=== PATIENT | female | born 1960 | race African-American/Black ===

== ENCOUNTER 2018-11-10 12:48 | Emergency (ER) | payer OTHER ==
[2018-11-10 13:11] VITALS: BMI 37.8
--- NOTE | 2018-11-10 14:06 | PDOC ---
History of Present Illness - General Chief Complaint: Psychiatric Stated Complaint: ANXIETY Time Seen by Provider: 11/10/18 13:42 - History of Present Illness Initial Comments: 11/10/18 14:06 58 yo F with h/o HTN, HLD, who p/w lightheadedness. Patient with acute onset of unremitting "head grogginess," beginning yesterday morning at rest. No identifiable triggers or alleviators. Denies h/o similar presentation. Also endorses vision change, but unable to characterize, possible diplopia. Denies fall/head trauma/neck trauma/LOC. Patient reports difficulty sleeping d/t symptoms. Prompted by PMD to come to ED for further evaluation. Patient denies Neck pain, cough, wheezing, palpations, orthopnea, PND, leg pain/ swelling, N/V, F,C, CP, SOB, urinary complaints, abdominal pain, diarrhea, constipation, hematuria, BPR, weakness, sensory changes. PMHx: as noted above. Denies h/o ACS/ME, CVA/TIA. ROS: as noted SHx: Denies Etoh, tobacco, IVDA Allergies: NKDA tPA Exclusion checklist 3-4.5h - Time Elapsed Date last known well: 11/09/18 Time last known well: 08:00 Elaspsed time: 1 Day(s) and 10 Hour(s) and 35 Minutes - Thrombolytic Therapy Candidate Is patient eligible for thrombolytic therapy: No - Exclusion Criteria 3-4.5 hr SBP greater than 185 or DBP greater than 110mmHg despite tx: No Recent IC/spinal surgery,head trauma or stroke<3mos.: No Hx IC hemorrhage, IC neoplasm, AV malformation or aneurysm: No Active internal bleeding: No Blding diathesis(low plt ct, inc PTT,INR>1.7 or use of NOAC): No Symptoms suggest subarachnoid hemorrhage: No CT demonstrates multilobar infarct(>1/3 cerebral hemiphere): No Arterial puncture at noncompressible site in previous 7 days: No Blood glucose concentration less than 50mg/dL (2.7mmol/L): No - Relative Exclusion Criteria 3-4.5 hr Life expectancy <1 yr or severe co-morbid illness: No : No Patient/family refused: No Rapid improvement: No Stroke severity too mild: Yes Recent acute ME (w/in previous 3 months): No Seizure at onset with postictal residual neuro impairments: No Major surgery or serious trauma w/in previous 14 days: No Recent GI or hemorrhage (w/in previous 21 days): No - Add'l Relative Exclusion 3-4.5 hr Age > 80: No Hx of both diabetes AND prior ischemic stroke: No Taking an oral anticoagulant regardless of INR: No NIHSS >25: No - Ineligibility reason(s) Reasons No tPA given: Outside of window - delayed arrival, See reason(s) noted above NIH Stroke Scale - Last Known Well Date/Time & Onset Date Last Known Well: 11/09/18 Time Last Known Well: 08:00 - Initial Evaluation Level of consciousness: Alert Ask patient the month and their age: Answers both correctly Ask patient to open & close eyes; make fist and let go: Obeys both correctly Best gaze (horizontal eye movement): Normal Visual field testing: No visual field loss Facial paresis (Show teeth/raise eyebrows/close eyes tight): Normal symmetrical movement Motor Function: Left Arm: Normal Motor Function: Right Arm: Normal (extends arm 90 (or 45) degrees for 10 seconds without drift Motor Function: Left Leg: Normal (extends leg 30 degrees for 5 seconds without drift) Motor Function: Right Leg: Normal (extends leg 30 degrees for 5 seconds without drift) Limb Ataxia: No ataxia Sensory(Use pinprick test arms,legs,trunk,face/side to side): Normal Best language (Describe picture, name items, read sentences): No Aphasia Dysarthria (read several words): Normal articulation Extinction and Inattention: No abnormality - Total Score NIH Stroke Scale Score: 0 Past History - Past Medical History Allergies/Adverse Reactions: Allergies Allergy/AdvReac Type Severity Reaction Status Date / Time No Known Allergies Allergy Verified 11/10/18 13:10 Home Medications: Ambulatory Orders Aspirin [ASA] 81 mg PO DAILY 11/16/12 Meloxicam [Mobic] 15 mg PO DAILY 11/16/12 Simvastatin [Zocor] 80 mg PO AM 11/16/12 Triamterene/Hydrochlorothiazid [Triamterene-Hctz 37.5-25 mg Cp] 1 tab PO DAILY 11/10/18 COPD: No HTN: Yes Hypercholesterolemia: Yes - Suicide/Smoking/Psychosocial Hx Smoking Status: No Smoking History: Never smoked Number of Cigarettes Smoked Daily: 0 Hx Alcohol Use: Yes (on occasion does consume alcohol last drink was about one to 2 weeks ago.) Review of Systems - Review of Systems Comments:: 11/10/18 14:06 GENERAL/CONSTITUTIONAL: No fever or chills. No weakness. HEAD, EYES, EARS, NOSE AND THROAT: No change in vision. No ear pain or discharge. No sore throat. CARDIOVASCULAR: No chest pain or shortness of breath RESPIRATORY: No cough, wheezing, or hemoptysis. GASTROINTESTINAL: No nausea, vomiting, diarrhea or constipation. GENITOURINARY: No dysuria, frequency, or change in urination. MUSCULOSKELETAL: No joint or muscle swelling or pain. No neck or back pain. SKIN: No rash NEUROLOGIC: + Lightheadedness. No headache, vertigo, loss of consciousness, or change in strength/sensation. ENDOCRINE: No increased thirst. No abnormal weight change HEMATOLOGIC/LYMPHATIC: No anemia, easy bleeding, or history of blood clots. ALLERGIC/IMMUNOLOGIC: No hives or skin allergy. *Physical Exam - Vital Signs Last Vital Signs Temp Pulse Resp BP Pulse Ox 98 F 89 18 154/58 L 99 11/10/18 13:09 11/10/18 13:09 11/10/18 13:09 11/10/18 13:09 11/10/18 13:09 - Physical Exam Comments: 11/10/18 14:06 GENERAL: Awake, alert, and fully oriented, in no acute distress HEAD: No signs of trauma, normocephalic, atraumatic EYES: Vision 20/70 OU, PERRLA, EOMI, sclera anicteric, conjunctiva clear ENT: Auricles normal inspection, hearing grossly normal, nares patent, oropharynx clear without exudates. Moist mucosa NECK: Normal ROM, supple, no lymphadenopathy, JVD, or masses LUNGS: No distress, speaks full sentences, clear to auscultation bilaterally HEART: Regular rate and rhythm, normal S1 and S2, no murmurs, rubs or gallops, peripheral pulses normal and equal bilaterally. ABDOMEN: Soft, nontender, normoactive bowel sounds. No guarding, no rebound. No masses EXTREMITIES : Normal inspection, Normal range of motion, no edema. No clubbing or cyanosis. NEUROLOGICAL: Cranial nerves II through XII grossly intact. Normal speech, normal gait, no focal sensorimotor deficits. Neg dysmetria on FTN. Normal DIONNA. SKIN: Warm, Dry, normal turgor, no rashes or lesions noted Moderate Sedation - Procedure Monitoring Vital Signs: Procedure Monitoring Vital Signs Temperature 98 F 11/10/18 13:09 Pulse Rate 89 11/10/18 13:09 Respiratory Rate 18 11/10/18 13:09 Blood Pressure 154/58 L 11/10/18 13:09 O2 Sat by Pulse Oximetry (%) 99 11/10/18 13:09 ED Treatment Course - LABORATORY CBC & Chemistry Diagram: 11/10/18 15:25 11/10/18 15:25 Medical Decision Making - Medical Decision Making 11/10/18 15:10 58 yo F with h/o HTN, HLD, who p/w lightheadedness "head grogginess," x 2 days. Vitals wnl, AF, A&OX3. No focal neuro deficits on physical exam. Will evaluate for VBI/TIA, hypoglycemia, hypovolemia, cardiac dysarrythmias, electrolyte abnml , acid base disturbances, metabolic and toxic derangements, infection. NIHSS 0, Ta ED Course: CBC,CMP,CARDIAC,EKG CTH UA 11/10/18 15:17 11/10/18 16:56 CBC, CMP: Unremarkable UA: Neg EKst degree AV block, [place] 216, with absent MARGO, STD TWI. Normal axis. + LVH. NEg Q wave. 11/10/18 17:50 Trop: Neg 11/10/18 18:35 CTH: Unremarkable Stable for d/c with return precautions Advised to f/u with PMD and neurology *DC/Admit/Observation/Transfer Diagnosis at time of Disposition: Light-headed - Discharge Dispostion Condition at time of disposition: Stable Decision to Admit order: No - Referrals Referrals: Reji Jeffers [Primary Care Provider] - - Patient Instructions Printed Discharge Instructions: DI for Syncope in Adults (Fainting) Additional Instructions: Please return to the emergency department with any new or worsening symptoms or concerns. Please follow up with your primary care physician within 72 hours. - Post Discharge Activity - Attestations Physician Attestion: 11/10/18 14:06 I attest to the information provided in this note.
--- NOTE | 2018-11-10 15:59 | PDOC ---
Attending Attestation - HPI HPI: 11/10/18 16:57 The patient is a 58 year old female, with a significant past medical history of HTN and HLD, who presents to the emergency department with, lightheadedness. She received a cortisone shot yesterday to her knee and today her symptoms onset. Patient describes her symptoms as grogginess with associated increased anxiety and visionary changes she is unable to describe. She denies any recent weakness, numbness, head/neck injury, or neck pain. She denies recent fevers or chills.. She denies recent nausea, vomit, diarrhea or constipation. She denies recent dysuria, frequency, urgency or hematuria. She denies recent chest pain or shortness of breath. Allergies: NKDA Past surgical history: None reported. Social history: Nonsmoker. Denies EtOH use and recreational drug use. Primary Care Physician: Dr. Jeffers <Bolivar Garcia - Last Filed: 11/10/18 16:57> - Resident Resident Name: Jignesh Hall - ED Attending Attestation I have performed the following: I have examined & evaluated the patient, The case was reviewed & discussed with the resident, I agree w/resident's findings & plan, Exceptions are as noted - Physicial Exam PE: GENERAL: Awake, alert, and fully oriented, in no acute distress HEAD: No signs of trauma EYES: PERRLA, EOMI, sclera anicteric, conjunctiva clear ENT: Auricles normal inspection, hearing grossly normal, nares patent, oropharynx clear without exudates. Moist mucosa NECK: Normal ROM, supple, no lymphadenopathy, JVD, or masses LUNGS: Breath sounds equal, clear to auscultation bilaterally. No wheezes, and no crackles HEART: Regular rate and rhythm, normal S1 and S2, no murmurs, rubs or gallops ABDOMEN: Soft, nontender, normoactive bowel sounds. No guarding, no rebound. No masses EXTREMITIES: Normal range of motion, no edema. No clubbing or cyanosis. No cords, erythema, or tenderness NEUROLOGICAL: Cranial nerves II through XII grossly intact. Normal speech, normal gait. Motor and sensation intact SKIN: Warm, Dry, normal turgor, no rashes or lesions noted. - Medical Decision Making No signs of any acute neurologic process on exam. What she is describing can occur with systemic steroids, but would be unusual to see with a knee injection. Will obtain labs and CTH, however, if normal, will DC home. <Clair Brown - Last Filed: 11/10/18 17:17> Attestations - Attestations 11/10/18 16:57 Documentation prepared by Bolivar Garcia, acting as director biomedical engineering for Clair Brown MD. <Bolivar Garcia - Last Filed: 11/10/18 16:57>
[2018-11-10 16:15] LABS: BASO % 1.5 % (0-2.0); EOS % 0.7 % (0-4.5); HEMATOCRIT 36.3 % (32.4-45.2); LYMPH % 27.8 % (8-40); MCH 32.3 pg (25.7-33.7); MCHC 35.8 g/dl (32.0-36.0); MEAN CELL VOLUME 90.2 fl (80-96); MEAN PLT VOLUME 8.6 fl (7.5-11.1); PLATELET COUNT 298 K/MM3 (134-434); RBC 4.02 M/mm3 (3.60-5.2); WHITE BLOOD COUNT 3.9 K/mm3 (4.0-10.0)
[2018-11-10 16:35] LABS: INR 1.03 (0.83-1.09); PROTHROMBIN TIME (PATIENT) 12.2 SEC (9.7-13.0)
[2018-11-10 16:37] LABS: URINE APPEARANCE CLEAR; URINE BILIRUBIN NEGATIVE (<2.0 mg/dL); URINE COLOR LTYELLOW; URINE GLUCOSE (UA) NEGATIVE (NEGATIVE); URINE KETONE NEGATIVE (NEGATIVE); URINE LEUK ESTERASE NEGATIVE (NEGATIVE); URINE NITRITE NEGATIVE (NEGATIVE); URINE PROTEIN NEGATIVE (NEGATIVE); URINE UROBILINOGEN NEGATIVE mg/dL (0.2-1.0)
[2018-11-10 16:44] LABS: ALBUMIN 3.6 g/dl (3.4-5.0); ALK PHOS 120 U/L (45-117); ANION GAP 7 MMOL/L (8-16); BILIRUBIN,TOTAL 0.4 mg/dL (0.2-1); BLOOD UREA NITROGEN 15 mg/dL (7-18); CALCIUM 8.7 mg/dL (8.5-10.1); CHLORIDE 100 mmol/L (98-107); CO2 28 mmol/L (21-32); CREATININE 0.7 mg/dL (0.55-1.3); GLUCOSE,RANDOM 78 mg/dL (74-106); POTASSIUM 3.7 mmol/L (3.5-5.1); SGOT/AST 19 U/L (15-37); SGPT/ALT 24 U/L (13-61); SODIUM 136 mmol/L (136-145); TOT PROT 7.4 g/dl (6.4-8.2)
[2018-11-10 18:48] VITALS: BP 149/60; PULSE 80; TEMP 98.1
--- NOTE | 2018-11-11 09:44 | EKG ---
Test Reason : Blood Pressure : / mmHG Vent. Rate : 085 BPM Atrial Rate : 085 BPM P-R Int : 216 ms QRS Dur : 086 ms QT Int : 382 ms P-R-T Axes : 059 025 044 degrees QTc Int : 454 ms SINUS RHYTHM WITH 1ST DEGREE A-V BLOCK MINIMAL VOLTAGE CRITERIA FOR LVH, MAY BE NORMAL VARIANT BORDERLINE ECG WHEN COMPARED WITH ECG OF 16-NOV-2012 09:05, NO SIGNIFICANT CHANGE WAS FOUND Confirmed by KAVITA HUNG, MEAGAN ([id number]) on 11/11/2018 9:44:11 AM Referred By: Confirmed By:MEAGAN WALLS MD
== END 2018-11-10 19:30 | disposition home or self-care (01) ==
LOC: JER 12:48
DX: R42 Dizziness and giddiness (principal); I10 Essential (primary) hypertension; E78.00 Pure hypercholesterolemia, unspecified; E78.5 Hyperlipidemia, unspecified
CPT/HCPCS: 36415; 70450-TC; 71045-TC-FY; 80053; 81003; 82550; 82553; 84484; 85025; 85610; 93005; 93010; 99283-25

== ENCOUNTER → 2020-09-15 | Day surgery (SDC) | payer OTHER | END | disposition home or self-care (01) | LOC: JRADIR 09:56 | PROVIDERS: ATTEND Internal Medicine Endocrinology, Diabetes & Metabolism | PROC: 0G9K3ZX Drainage of Thyroid Gland, Percutaneous Approach, Diagnostic (ICD-10-PCS; principal; 2020-09-15) | DX: E04.1 Nontoxic single thyroid nodule (principal) | CPT/HCPCS: 76942; 88173; 88305-TC ==

== ENCOUNTER 2021-05-01 10:49 | Emergency (ER) | payer OTHER ==
[2021-05-01 10:56] VITALS: TEMP 98; BMI 30.7
[2021-05-01 13:33] LABS: BASO % 0.6 % (0-2.0); EOS % 0.5 % (0-4.5); HEMATOCRIT 36.1 % (32.4-45.2); HEMOGLOBIN 12.2 GM/dL (10.7-15.3); LYMPH % 37.3 % (8-40); MCH 31.7 pg (25.7-33.7); MCHC 33.9 g/dl (32.0-36.0); MEAN CELL VOLUME 93.6 fl (80-96); MEAN PLT VOLUME 7.6 fl (7.5-11.1); MONO % 7.6 % (3.8-10.2); PLATELET COUNT 248 10^3/uL (134-434); RBC 3.86 M/mm3 (3.60-5.2); RDW 16.6 % (11.6-15.6); WHITE BLOOD COUNT 2.4 K/mm3 (4.0-10.0)
[2021-05-01 13:35] LABS: CALCIUM 8.9 mg/dL (8.5-10.1)
[2021-05-01 13:36] LABS: ALBUMIN 3.8 g/dl (3.4-5.0); MAGNESIUM 2.2 mg/dL (1.8-2.4)
[2021-05-01 13:40] LABS: BILIRUBIN,TOTAL 0.6 mg/dL (0.2-1); CREATININE 0.7 mg/dL (0.55-1.3); PHOSPHOROUS 3.4 mg/dL (2.5-4.9)
[2021-05-01 14:28] VITALS: BP 138/82; PULSE 89
== END 2021-05-01 14:30 | disposition home or self-care (01) ==
LOC: JER 10:49
DX: E03.9 Hypothyroidism, unspecified (principal); R45.1 Restlessness and agitation; D72.819 Decreased white blood cell count, unspecified
CPT/HCPCS: 36415; 80053; 83735; 84100; 84439; 84443; 85025; 93005; 93010; 99284-25